=== PATIENT | female | born 2000 | race Asian ===

== ENCOUNTER 2020-06-16 21:22 | Emergency (ER) | payer OTHER ==
[~2020-06-16] VITALS: Ht 152.4 cm; Wt 61.0 kg
[2020-06-16] MEDS ORDERED: ACETAMINOPHEN 325MG TABLET PO ONE (22:30)
[2020-06-16] MEDS ORDERED: PREDNISONE 20MG TABLET PO ONE (22:30)
[2020-06-16] MEDS ORDERED: ALBUTEROL 6.7GM HFA INHALER ORI ONE (22:30)
[2020-06-16 23:44] LABS: BASOPHILS % 0.5 % (0.0-2.0); EOSINOPHILS % 6.5 % (0.0-5.0); HEMATOCRIT. 39.7 % (36.0-48.0); HEMOGLOBIN. 13.8 g/dL (12.0-16.0); LYMPHOCYTES % 20.1 % (20.0-50.0); MEAN CORPUSCULAR HEMOGLOBIN 30.5 pg (28.0-32.0); MEAN CORPUSCULAR VOLUME 88.1 fL (81.0-99.0); MEAN PLATELET VOLUME 8.4 fl (7.4-10.4); MONOCYTES % 6.8 % (2.0-8.0); NEUTROPHILS % 66.1 % (40.0-76.0); PLATELET 289 x1000/uL (130-400); RED BLOOD CELL COUNT 4.51 mill/uL (4.2-5.4); RED CELL DISTRIBUTION WIDTH 12.4 % (11.6-14.6)
[2020-06-16 23:51] LABS: CHLORIDE 104 mEq/L (98-107)
[2020-06-17 00:03] LABS: CLARITY URINE CLOUDY (CLEAR); COLOR URINE YELLOW (YELLOW); KETONES URINE NEGATIVE (NEGATIVE); LEUKOCYTE ESTERASE URINE 1+ (NEGATIVE); NITRITE URINE POSITIVE (NEGATIVE); OCCULT BLOOD URINE 2+ (NEGATIVE); PROTEIN URINE NEGATIVE (NEGATIVE); UROBILINOGEN URINE 0.2 E.U./dL (0.2-1.0)
[2020-06-17 00:10] LABS: HCG SCREEN NEGATIVE
[2020-06-17] MEDS ORDERED: CEPHALEXIN 250MG CAPSULE PO NR (00:15)
[2020-06-17 00:19] LABS: *BENZODIAZEPINES SCREEN URINE NEGATIVE (NEGATIVE)
[2020-06-17 00:20] LABS: *COCAINE SCREEN URINE NEGATIVE (NEGATIVE); METHADONE URINE SCREEN NEGATIVE (NEGATIVE); OPIATES URINE SCREEN NEGATIVE (NEGATIVE); PHENCYCLIDINE URINE SCREEN NEGATIVE (NEGATIVE)
[2020-06-17 00:21] LABS: *AMPHETAMINES SCREEN URINE NEGATIVE (NEGATIVE); *BARBITURATES SCREEN URINE NEGATIVE (NEGATIVE); CANNABINOID URINE SCREEN NEGATIVE (NEGATIVE)
[2020-06-17 00:38] VITALS: BP 122/71
== END 2020-06-17 01:30 | disposition home or self-care (01) ==
LOC: ER 21:22
DX: J45.901 Unspecified asthma with (acute) exacerbation (principal); N39.0 Urinary tract infection, site not specified; Z20.828 Contact with and (suspected) exposure to other viral communicable diseases; Z98.890 Other specified postprocedural states
CPT/HCPCS: 36415; 71045; 80053; 80305; 81003; 81025; 84703; 85025; 93005; 94640; 99285; C9803; J7512